=== PATIENT | female | born 1980 | race Caucasian/White ===

== ENCOUNTER 2018-05-11 09:20 | Emergency (ER) | payer MEDICAID ==
[~2018-05-11] VITALS: Wt 80.0 kg
[~2018-05-11 09:20] MED LIST: ASPI-903 PO; CEPH-443 PO; CLIN300C10 PO; HYDR50TA15 PO
[2018-05-11] MEDS ORDERED: HYDROmorphONE 0.5 MG/0.5 ML SYG IM STA (10:05)
[2018-05-11] MEDS ORDERED: LIDOCAINE 1% (MDV) 20 ML INJ SC ONE (10:30)
[2018-05-11] MEDS ORDERED: CEFTRIAXONE 1 GM INJ IM ONE (10:30)
[2018-05-11] MEDS ORDERED: HYDR-4011 PO (10:58)
[2018-05-11] MEDS ORDERED: CEPH-443 PO (10:58)
[2018-05-11] MEDS ORDERED: SULF1TAB31 PO (10:58)
[2018-05-11] MEDS ORDERED: IBUP-1542 PO (10:58)
[2018-05-11] MEDS ORDERED: IBUPROFEN 600 MG TAB PO ONE (11:00)
[2018-05-11] MEDS ORDERED: TRIMETHOPRIM/SULFAMETHOX (DS) TAB PO ONE (11:00)
--- NOTE | 2018-05-11 11:03 | ERD ---
ER Documentation Chief Complaint Chief Complaint RIGHT BUTTOCK ANILA HPI 38-year-old female presents with pain swelling redness on her right buttock for last 3 days. History significant for receiving an unspecified vitamin injection 1 week ago. It is worse after she bumped into a pole. She has chills but no measured fevers at home. She denies any cough, shortness breath or chest pain. ROS All systems reviewed and are negative except as per history of present illness. Medications Home Meds Active Scripts Ibuprofen* (Motrin*) 600 Mg Tab, 600 MG PO Q6, #20 TAB Prov:ZULEMA YOUNG MD 05/11/18 Cephalexin* (Keflex*) 500 Mg Capsule, 500 MG PO QID for 10 Days, CAP Prov:ZULEMA YOUNG MD 05/11/18 Sulfamethoxazole/Trimethoprim* (Bactrim Ds* Tablet) 1 Each Tablet, 1 TAB PO BID, #20 TAB Prov:ZULEMA YOUNG MD 05/11/18 Hydrocodone/Acetaminophen ([place] 5-325 Tablet) 1 Each Tablet, 1 TAB PO Q6H PRN for PAIN, #10 TAB Prov:ZULEMA YOUNG MD 05/11/18 Hydroxyzine Hcl* (Hydroxyzine Hcl*) 50 Mg Tablet, 50 MG PO Q6 PRN for ANXIETY, #40 TAB Prov:ROVERTO THRASHER 12/24/17 Aspirin* (Aspirin* Chew) 81 Mg Tab.chew, 81 MG PO DAILY, #30 TAB.CHEW Prov:ROVERTO THRASHER 12/24/17 Cephalexin* (Keflex*) 500 Mg Capsule, 500 MG PO TID for 7 Days, CAP Prov:ROVERTO THRASHER F 12/24/17 Clindamycin Hcl* (Clindamycin Hcl*) 300 Mg Capsule, 300 MG PO QID for 10 Days, CAP Prov:JOCY PACHECO MD 03/19/15 Allergies Allergies: Coded Allergies: No Known Allergy (Unverified , 12/24/17) PMhx/Soc History of Surgery: No Anesthesia Reaction: No Hx Neurological Disorder: No Hx Respiratory Disorders: No Hx Cardiac Disorders: No Hx Psychiatric Problems: No Hx Miscellaneous Medical Probl: Yes (STD) Hx Alcohol Use: No (UNK) Hx Substance Use: Yes ("GHB" HEROIN ) Hx Tobacco Use: Yes Smoking Status: Current some day smoker FmHx Family History: No diabetes, No coronary disease, No other Physical Exam Vitals Vital Signs Date Temp Pulse Resp B/P (MAP) Pulse Ox O2 O2 Flow FiO2 Time Delivery Rate 05/11/18 98.1 90 18 130/78 99 09:26 (95) Physical Exam Const: No acute distress Head: Atraumatic Eyes: Normal Conjunctiva ENT: Normal External Ears, Nose and Mouth. Neck: Full range of motion. No meningismus. Resp: Clear to auscultation bilaterally Cardio: Regular rate and rhythm, no murmurs Abd: Soft, non tender, non distended. Normal bowel sounds Skin: No petechiae or rashes. Right buttock approximately 5 cm area of redness, fluctuance and swelling. No induration or streaking. Back: No midline or flank tenderness Ext: No cyanosis, or edema Neur: Awake and alert Psych: Normal Mood and Affect Results 24 hrs Current Medications Medications Dose Sig/Compa Start Time Status Last (Trade) Ordered Route PRN Stop Time Admin Dose Reason Admin 1 mg ONCE STAT 05/11/18 DC 05/11/18 Hydromorphone IM 10:05 10:15 HCl 05/11/18 10:07 (Dilaudid) Ceftriaxone 1 gm ONCE ONCE 05/11/18 DC 05/11/18 Sodium IM 10:30 10:14 (Rocephin) 05/11/18 10:31 Lidocaine 20 ml ONCE ONCE 05/11/18 DC 05/11/18 (Xylocaine SC 10:30 10:14 1% (Mdv) 20 05/11/18 10:31 ml) 1 tab ONCE ONCE 05/11/18 DC Trimethoprim/ PO 11:00 05/11/18 11:01 Sulfamethoxaz ole (Bactrim (Ds)) Ibuprofen 600 mg ONCE ONCE 05/11/18 DC (Motrin) PO 11:00 05/11/18 11:01 Procedures/MDM She presents with signs of a right buttock abscess without signs of sepsis or necrotizing fasciitis. Patient was given Dilaudid 1 mg IM, Rocephin 1 g IM. Bactrim double strength p.o. as well as ibuprofen. Procedure note-right buttock was prepped with Betadine. 5 cc of lidocaine was used for local infiltration. #11 scalpel was used to incise the wound. Pus was expressed and loculations were broken up with a swab. Approximately 6 cm of quarter inch gauze was used to pack the wound. Patient tolerated procedure well. Patient was discharged home with recommendations for 2-3-day wound check. 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 Patient was advised to take medications as directed, take only as needed for severe pain. Departure Diagnosis: Primary Impression: Abscess Condition: Stable Patient Instructions: Abscess, Incision And Drainage Additional Instructions: Recheck in 2-3 days for gauze removal. Recheck sooner for new or worsening symptoms. ZULEMA YOUNG MD May 11, 2018 11:03
== END 2018-05-11 11:26 | disposition home or self-care (01) ==
LOC: FTE 09:20
DX: L02.31 Cutaneous abscess of buttock (principal); F17.210 Nicotine dependence, cigarettes, uncomplicated
CPT/HCPCS: 10060; 96372; J0696; J1170; Z7502; Z7610